=== PATIENT | male | born 1965 | race Caucasian/White ===

== ENCOUNTER 2023-07-24 08:30 | Outpatient (OUT) | payer MEDICAID, SELFPAY ==
[2023-07-24 09:25] LABS: Alanine Aminotransferase 22 U/L (16-63); Albumin Globulin Ratio 0.9; Albumin Level 3.7 g/dL (3.4-5.0); Alkaline Phosphatase 51 U/L (46-116); Anion Gap 17.4; Aspartate Amino Transferase 12 U/L (15-37); BUN Creatinine Ratio 14.4; Bilirubin Total 0.4 mg/dL (0.2-1.0); Calcium 9.5 mg/dL (8.5-10.1); Chloride 96 mmol/L (98-107); Chol HDL Ratio 5.4; Cholesterol 166 mg/dL (<=200); Estimated GFR (African America >60 (>=60); Estimated GFR (Non-African Ame 60 (>=60); Globulin 4.3 g/dL; Glucose 248 mg/dL (74-106); HDL Cholesterol 31 mg/dL (40-60); Potassium 4.4 mmol/L (3.5-5.1); Sodium 136 mmol/L (136-145); Triglycerides 458 mg/dL (<=150); VLDL CHOLESTEROL 91.6 mg/dL
[2023-07-24 09:26] LABS: LDL Cholesterol Direct 80 mg/dL
== END 2023-07-24 08:31 | disposition home or self-care (01) ==
LOC: LAB 08:36
PROVIDERS: Visit Provider Nurse Practitioner
DX: I50.22 Chronic systolic (congestive) heart failure (principal)
CPT/HCPCS: 36415; 80053; 80061; 83721